=== PATIENT | female | born 1990 ===

== ENCOUNTER 2023-04-26 10:46 | Outpatient (CLI) | payer OTHER | END 2023-04-26 13:14 | disposition home or self-care (01) | LOC: PRENATAL 10:46 | PROVIDERS: ATTEND Obstetrics & Gynecology Maternal & Fetal Medicine | DX: O35.3XX0 Maternal care for (suspected) damage to fetus from viral disease in mother, not applicable or unspecified (principal); O44.00 Complete placenta previa NOS or without hemorrhage, unspecified trimester; Z3A.20 20 weeks gestation of pregnancy ==

== ENCOUNTER 2023-07-21 10:36 | Outpatient (CLI) | payer OTHER | END 2023-07-21 10:38 | disposition home or self-care (01) | LOC: PRENATAL 10:36 | PROVIDERS: ATTEND Obstetrics & Gynecology Maternal & Fetal Medicine | DX: O26.849 Uterine size-date discrepancy, unspecified trimester (principal); O36.8199 Decreased fetal movements, unspecified trimester, other fetus; Z3A.32 32 weeks gestation of pregnancy ==